=== PATIENT | female | born 1970 | race Caucasian/White ===

== ENCOUNTER 2020-08-07 17:20 | Emergency (ER) | payer OTHER ==
[~2020-08-07 17:20] MED LIST: PROTONIX IV40 MG PO
[2020-08-07] MEDS ORDERED: Flexeril PO (20:01)
[2020-08-07] MEDS ORDERED: MEDROL DOSEPAK 24 MG PO (20:01)
[2020-08-07] MEDS ORDERED: Voltaren Gel 1 % TOP (20:01)
== END 2020-08-07 20:15 | disposition home or self-care (01) ==
LOC: ER1 17:20
DX: M54.5 Low back pain (principal); G89.29 Other chronic pain; J45.909 Unspecified asthma, uncomplicated; F17.210 Nicotine dependence, cigarettes, uncomplicated; Z88.6 Allergy status to analgesic agent; Z88.8 Allergy status to other drugs, medicaments and biological substances
CPT/HCPCS: 72131; 96372; 99284; J1100; J2360

== ENCOUNTER 2020-08-14 08:48 | Emergency (ER) | payer OTHER ==
[~2020-08-14 08:48] MED LIST changes: +Flexeril PO; +MEDROL DOSEPAK 24 MG PO; +Voltaren Gel 1 % TOP
[2020-08-14] MEDS ORDERED: CYCLOBENZAPRINE10 MG PO (11:32)
== END 2020-08-14 12:13 | disposition home or self-care (01) ==
LOC: ER1 08:48
DX: G89.29 Other chronic pain (principal); M54.5 Low back pain; F17.200 Nicotine dependence, unspecified, uncomplicated; Z88.6 Allergy status to analgesic agent
CPT/HCPCS: 96372; 99283; J2360; J2930

== ENCOUNTER → 2020-10-31 | Outpatient (CLI) | payer OTHER ==
[~2020-10-31] MED LIST changes: +CYCLOBENZAPRINE10 MG PO
[2020-10-31 17:02] LABS: HEMOGLOBIN 8.6 gm/dl (12.3-15.3); RED BLOOD COUNT 3.65 M/UL (4.00-5.10); WHITE BLOOD COUNT 7.2 K/UL (4.5-11.0)
[2020-10-31 17:33] LABS: BUN/CREATININE RATIO 23 (0-10)
== END ==
LOC: PHH 16:12
PROVIDERS: Nurse Practitioner
DX: M46.26 Osteomyelitis of vertebra, lumbar region (principal); G06.1 Intraspinal abscess and granuloma
CPT/HCPCS: 80053; 82550; 85025; 85652; 86140

== ENCOUNTER 2020-12-16 10:36 | Emergency (ER) | payer SELFPAY ==
[2020-12-16 11:37] LABS: HEMOGLOBIN 8.2 gm/dl (12.3-15.3); RED BLOOD COUNT 3.6 M/UL (4.00-5.10)
[2020-12-16 12:11] LABS: BUN/CREATININE RATIO 13 (0-10)
== END 2020-12-16 12:05 | disposition left against medical advice (07) ==
LOC: ER1 10:36
DX: R55 Syncope and collapse (principal); C92.00 Acute myeloblastic leukemia, not having achieved remission; M41.9 Scoliosis, unspecified
CPT/HCPCS: 71045; 80053; 82550; 82553; 83605; 83874; 84484; 85025; 93005; 99284; J7030

== ENCOUNTER 2021-07-09 18:37 | Emergency (ER) | payer MEDICARE ==
[2021-07-09 19:48] LABS: RED BLOOD COUNT 4.24 M/UL (4.00-5.10); WHITE BLOOD COUNT 7.5 K/UL (4.5-11.0)
[2021-07-09 19:55] LABS: HEMOGLOBIN 9.8 gm/dl (12.3-15.3)
[2021-07-09 20:18] LABS: BUN/CREATININE RATIO 33 (0-10)
[2021-07-10 09:05] LABS: ACINETOBACTER BAUMANNII Not Detected (Negative); CANDIDA ALBICANS Not Detected (Negative); CANDIDA KRUSEI Not Detected (Negative); CANDIDA TROPICALIS Not Detected (Negative); ENTEROCOCCUS Not Detected (Negative); ESCHERICHIA COLI Not Detected (Negative); HAEMOPHILUS INFLUENZAE Not Detected (Negative); KLEBSIELLA OXYTOCA Not Detected (Negative); KLEBSIELLA PNEUMONIAE Not Detected (Negative); KPC-CARBAPENEM-RESISTANCE GENE Not Detected (Negative); PROTEUS Not Detected (Negative); PSEUDOMONAS AERUGINOSA Not Detected (Negative); SERRATIA MARCESANS Not Detected (Negative); STAPHYLOCOCCUS Not Detected (Negative); STAPHYLOCOCCUS AUREUS Not Detected (Negative); STREP AGALACTIAE (GROUP B) Not Detected (Negative); STREP PYOGENES (GROUP A) Not Detected (Negative); STREPTOCOCCUS Not Detected (Negative); mecA (METHICILLIN RESIST GENE Not Detected (Negative); vanA/B (VANCOMYCIN RESIST GENE Not Detected (Negative)
== END 2021-07-09 22:03 | disposition home or self-care (01) ==
LOC: ER1 18:37
PROVIDERS: Family Medicine
DX: M54.50 Low back pain, unspecified (principal); Z79.82 Long term (current) use of aspirin; F17.210 Nicotine dependence, cigarettes, uncomplicated
CPT/HCPCS: 72128; 72131; 80053; 85025; 85652; 86140; 87040; 87077; 87150; 87186; 96374; 96375; 96376; 99284; J2270; J2405